=== PATIENT | female | born 1965 | race Caucasian/White ===

== ENCOUNTER 2017-09-01 13:36 | Emergency (ER) | payer SELFPAY ==
[2017-09-01 13:57] VITALS: BP 123/60; BMI 20.6
[2017-09-01] MEDS ORDERED: NORFLEX INJ IM ONE (15:13)
[2017-09-01] MEDS ORDERED: TORADOL 60 MG VIAL IM ONE (15:13)
--- NOTE | 2017-09-01 15:13 | DR.FBACK ---
HPI - Time Seen Time seen: 15:05 - PCP Primary Care Physician: KERRY - HPI Comment HPI Comment: WORSE TODAY. HISTORY CHRONIC LOWER BACK PAIN. - Complaint Chief Complaint Doctor Comments: INCREASING LOWER BACK AND NECK PAIN DUE TO A FALL 2 DAYS AGO. Chief Complaint:: FELL DOWN COUPLE OF DAYS AGO AND PAIN HAS INCREASED. INJURED BACK COUPLE OF YEARS AGO AND HAS INCREASED IN PAIN ACROSS LOWER BACK AND DOWN BOTH LEGS. Self Treatment fo Chief Complaint: TYLENOL - Reviewed Nurses Notes Review: Yes - Mode of Arrival Mode of Arrival: Ambulatory - Timing Onset of Chief Complaint: 08/30/17 - Location Back Pain Location: Lumbar PMH - PMH Past Medical History: Yes Past Medical History: PUD Past Medical History Comment: STENTS Past Surgical History: Yes Surgical History: Hysterectomy Past Surgical History Comment: CHEST TUBE - Family History History of Family Medical Conditions: Yes Family Medical History: Diabetes Mellitus, [place], Coronary Artery Disease - Social History Does patient currently use any type of tobacco product: Yes Have you used tobacco products in the last 12 months: Yes Type of Tobacco Use: Cigarettes Alcohol Use: None Do you use any recreational Drugs:: No Lives With: Spouse Lives Where: Home - infectious screening In the last 2 months have you had wt loss of >10#?: NO Have you had fever, night sweats or hemotysis?: No Have you traveled outside the country in the last 6 months?: No Isolation: Standard ROS - Review of Systems Constitutional: No Symptoms Reported Eyes: No Symptoms Reported ENTM: No Symptoms Reported Respiratoy: No Symptoms Reported Cardiovascular: No Symptoms Reported Gastrointestinal/Abdominal: No Symptoms Reported Genitourinary: No Symptoms Reported Neurological: No Symptoms Reported Musculoskeletal: Back Pain, Neck Pain Integumentary: No Symptoms Reported Hematologic/Lymphatic: No Symptoms Reported Endocrine: No Symptoms Reported All Other Systems: Reviewed and Negative PE - Vitals Vital Signs: Temp Pulse Resp BP Pulse Ox 09/01/17 13:50 97.8 F 97 H 20 123/60 97 - General Limitations: No Limitations General Appearance: Alert - Head Head Exam: Normal Inspection - Eyes Eye exam: Normal Appearance - ENT ENT Exam: Normal External Ear Exam, Other (TENDERNESS POSTERIOR LOWER NECK.) - Chest Chest Inspection: Symmetric Chest Wall Rise - Respiratory Respiratory Exam: Normal Lung Sounds Bilat Respiratory Exam: Bilateral Clear to Auscultation - Cardiovascular Cardiovascular Exam: Regular Rate, Normal Rhythm, Normal Heart Sounds - Abdominal Exam Abdominal Exam: Normal Bowel Sounds, Soft. negative: Tenderness - Genitourinary External Exam: Female: Deferred : Speculum Exam (Female): Deferred : Bimanual Exam (female): Deferred - Extremities Extremities Exam: Normal Inspection - Back Back Exam: Tenderness (LOWER BACK TENDERNESS) - Neurological Neurological Exam: Alert, Oriented X3 - Psychiatric Psychiatric Exam: Normal Affect, Normal Mood - Skin Skin Exam: Normal Color MDM - Differential Diagnosis Differential Diagnosis: DJD, Musculoskeletal Pain, Strain Course - Treatment Treatment: SEE ORDERS. IM MEDS IN ED FOR PAIN. - Reevaluation 1st: Improved (PAIN IMPROVING.) - Education/Counseling Education/Counseling: Patient, Education Educated On: Treatment, Diagnosis, Needs for Follow Up ROR - XRAY XRAY Interpreted by: Radiologist XRAY Findings: REPORT DISCUSS WITH PATIENT. - Diagnosis Discharge Problem: Lumbosacral strain Qualifiers: Encounter type: initial encounter Qualified Code(s): S39.012A - Strain of muscle, fascia and tendon of lower back, initial encounter Sciatica Qualifiers: Laterality: bilateral Qualified Code(s): M54.31 - Sciatica, right side - Discharge Plan Disposition: HOME, SELF-CARE Condition: Stable Prescriptions: Cyclobenzaprine HCl [FLEXERIL 10 MG *] 10 mg PO TID PRN #20 tab PRN Reason: Prednisone [Prednisone Tab 10 mg] 10 mg PO QAM #7 tab - Follow ups/Referrals Follow ups/Referrals: [facility],None [Primary Care Provider] - 3 days - Instructions Instructions: Sciatica, [id number], Lumbosacral Strain Additional Instructions: RETURN TO ED IF WORSE.
[2017-09-01] MEDS ORDERED: TORADOL 60 MG VIAL ONE (15:45)
[2017-09-01] MEDS ORDERED: NORFLEX INJ ONE (15:45)
--- NOTE | 2017-09-01 15:58 | RAD ---
HISTORY: Status post fall a couple days prior. Study: AP and lateral lumbar spine Comparison: None Findings: Five lumbar type vertebra present. Mild lateral spurring is noted couple levels. Mild facet arthrop athy is noted at L4/L5 with moderate at L5/S1. The lateral view demonstrates normal curvature and al ignment. Mild disc space narrowing is noted at L4/L5 and L5/S1. Minimal anterior spurring is noted at several levels. IMPRESSION: 1. Lumbar spondylosis as described above. 2. No acute bony abnormalities are identified. Reported By:
== END 2017-09-01 16:29 | disposition home or self-care (01) ==
LOC: ER 14:03
DX: S39.012A Strain of muscle, fascia and tendon of lower back, initial encounter (principal); M54.31 Sciatica, right side; M47.817 Spondylosis without myelopathy or radiculopathy, lumbosacral region; W19.XXXA Unspecified fall, initial encounter
CPT/HCPCS: 72100; 96372; 99282; J1885; J2360